=== PATIENT | male | born 1980 | race Asian ===

== ENCOUNTER → 2021-07-08 15:22 | Outpatient (BNVA) | payer OTHER, SELFPAY | PROVIDERS: Visit Provider Physician Assistant Medical | DX: Z13.89 Encounter for screening for other disorder (principal) | CPT/HCPCS: 73140; 99203 ==

== ENCOUNTER → 2021-07-15 14:36 | Outpatient (BNVA) | payer OTHER, SELFPAY | PROVIDERS: Visit Provider Physician Assistant | DX: Z13.89 Encounter for screening for other disorder (principal) | CPT/HCPCS: 99213 ==

== ENCOUNTER 2021-07-20 13:49 | Outpatient (RCR) | payer OTHER, SELFPAY ==
--- NOTE | 2021-07-20 16:23 | MHC.OT.DC ---
[address] [phone] F: [phone] Occupational Therapy Discharge Note Provider: Chrissie Mosley PA-C Diagnosis: Left thumb hyper ext injury Date of Surgery: Date of Evaluation: 07/20/21 Date of Discharge: Treatments to Date: 1 Cancellations to Date: No Shows to Date: Discharge Status: Achieved Goals Improved Function Discharge Summary: Pt is 2 wks s/p left thumb hyper ext injury at work with a xray showing no abnormality. Pt is wearing a pre ifrah forearm based thumb spica for protection at work. He reports he is painfree with daily activities. 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
== END 2021-07-20 16:24 | disposition home or self-care (01) ==
LOC: HO.OT 13:49
PROVIDERS: Visit Provider Physician Assistant
DX: S69.92XD Unspecified injury of left wrist, hand and finger(s), subsequent encounter (principal)
CPT/HCPCS: 97165

== ENCOUNTER → 2021-07-29 15:08 | Outpatient (BNVA) | payer OTHER, SELFPAY | PROVIDERS: Visit Provider Physician Assistant | DX: Z13.89 Encounter for screening for other disorder (principal) | CPT/HCPCS: 99213 ==

== ENCOUNTER 2022-07-01 19:36 | Emergency (ER) | payer OTHER, SELFPAY ==
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
[2022-07-01 20:25] VITALS: PULSE 68; RESP 18; TEMP 37; O2SAT 99
== END 2022-07-01 21:16 | disposition home or self-care (01) ==
PROVIDERS: Emergency Provider Emergency Medicine
DX: S46.912A Strain of unspecified muscle, fascia and tendon at shoulder and upper arm level, left arm, initial encounter (principal); Y04.8XXA Assault by other bodily force, initial encounter; Y93.9 Activity, unspecified; Y92.9 Unspecified place or not applicable; Y99.0 Civilian activity done for income or pay
CPT/HCPCS: 99282; 99283